=== PATIENT | male | born 1960 | race Caucasian/White ===

== ENCOUNTER → 2021-10-10 | Outpatient (REF) | payer BC ==
[~2021-10-10] MED LIST: CITA40TA7 PO; LEVOTAB10 PO; SIMV20TA22 PO
[2021-10-10 14:33] LABS: % LABILE ALKALINE PHOSPHATASE 48.03 %
== END ==
LOC: M LAB REF 12:45
PROVIDERS: ATTEND Family Medicine
DX: R74.8 Abnormal levels of other serum enzymes (principal); R74.01 Elevation of levels of liver transaminase levels

== ENCOUNTER → 2021-11-12 | Outpatient (CLI) | payer BC ==
--- NOTE | 2021-11-12 08:26 | REP ---
INDICATION: LUNG CA SCREENING COMPARISON: None. TECHNIQUE: Axial noncontrast images from the thoracic inlet to the upper abdomen using low-dose lung screening technique (LDCT). FINDINGS: Bilateral lung shin are clear. No acute consolidation, suspicious nodule or mass. No obvious adenopathy. No effusion. No pneumothorax. Mediastinum is grossly normal. Incidental atherosclerotic changes to the coronary arteries noted. IMPRESSION: Lung-RADS category 1. No suspicious nodule or mass lesion. Management recommendations include annual low-dose CT surveillance. <Electronically signed by Ben Mishra > 11/12/21 2220
== END ==
LOC: M RAD 07:16
PROVIDERS: ATTEND Family Medicine
DX: Z12.2 Encounter for screening for malignant neoplasm of respiratory organs (principal); Z87.891 Personal history of nicotine dependence

== ENCOUNTER → 2021-12-14 | Outpatient (CLI) | payer BC | LOC: M LABSMTC 09:24 | PROVIDERS: ATTEND Anesthesiology | DX: Z01.812 Encounter for preprocedural laboratory examination (principal); Z20.822 Contact with and (suspected) exposure to COVID-19 ==

== ENCOUNTER 2021-12-19 08:07 | Day surgery (SDC) | payer BC ==
[~2021-12-19] VITALS: Ht 180.3 cm; Wt 107.5 kg
[~2021-12-19 08:07] MED LIST changes: +LIDOCAINE 2% 100MG/5ML SDV (FOR ANES.) As Ordered ONE; +NS 1,000 ML IV ONE; +propofoL 200 MG/20 ML VIAL As Ordered ONE
[2021-12-19 09:40] VITALS: BP 119/71
== END 2021-12-19 09:48 | disposition home or self-care (01) ==
LOC: M OPP 08:07
PROVIDERS: ATTEND Surgery
DX: Z12.11 Encounter for screening for malignant neoplasm of colon (principal); D12.6 Benign neoplasm of colon, unspecified; Z79.899 Other long term (current) drug therapy; Z91.030 Bee allergy status; Z87.891 Personal history of nicotine dependence